=== PATIENT | female | born 1980 | race Caucasian/White ===

== ENCOUNTER 2018-04-03 18:15 | Outpatient (REF) | payer BC, SELFPAY ==
[2018-04-03 19:26] LABS: *AMPHETAMINES SCREEN URINE Negative (Negative); *BARBITURATES SCREEN URINE Negative (Negative); *BENZODIAZEPINES SCREEN URINE Negative (Negative); Cannabinoids THC Negative (Negative); Cocaine Screen,Urine Negative (Negative); METHADONE URINE SCREEN Negative (Negative); OPIATES URINE SCREEN Negative (Negative); Tricyclic Antidepressants Negative (Negative)
[2018-04-06 15:02] LABS: Chlamydia Result Negative; GC Result Negative
== END 2018-04-03 18:35 ==
LOC: LBN 18:15
PROVIDERS: PCP Family Medicine; Visit Provider Advanced Practice Midwife
DX: Z34.91 Encounter for supervision of normal pregnancy, unspecified, first trimester (principal); Z11.3 Encounter for screening for infections with a predominantly sexual mode of transmission
CPT/HCPCS: 80307; 87491; 87591

== ENCOUNTER 2018-04-27 11:50 | Outpatient (CLI) | payer BC, SELFPAY ==
[2018-04-27 12:26] LABS: Glucose,1 Hr (Glucola) 85 mg/dL (80-140)
[2018-04-27 12:43] LABS: Kit/Specimen SENT
[2018-04-27 13:08] LABS: Abs Immature Grans 0.02 k/cumm (0.0-0.09); Absolute Basophil Count 0.02 k/cumm (0.0-0.2); Absolute Eosinophil Count 0.08 k/cumm (0.0-0.7); Absolute Lymphocyte Count 2.14 k/cumm (1.2-3.4); Absolute Monocyte Count 0.73 k/cumm (0.11-0.7); Absolute Neutrophil Count 8.04 k/cumm (1.2-6.7); Basophils % 0.2; Eosinophils % 0.7; HCT 38.3 % (36.0-46.0); HGB 12.9 g/dL (12.0-15.5); Immature Grans % 0.2; Lymphocytes % 19.4; Mean Corp. HGB Concentration 33.7 g/dL (32.0-36.0); Mean Corpuscular Hemoglobin 28.7 pg (27.0-33.0); Mean Corpuscular Volume 85.1 fL (80-95); Mean Platelet Volume 10.2 fL (8.0-11.0); Monocytes % 6.6; Neutrophils % 72.9; Platelet Count 284 x1000/uL (130-400); White Blood Cell Count 11.03 k/cumm (4.4-10.8)
[2018-04-27 13:55] LABS: TSH (W/Ref FT4) 1.16 uIU/mL (0.358-3.74)
[2018-04-28 09:52] LABS: Hepatitis B Surface Ag Negative (NEGAT)
[2018-04-28 10:29] LABS: Hepatitis C Ab w Rflx HCV PCR Negative (NEGAT); Rubella IgG Ab (UVM) Negative; Syphilis Serology (RPR) Negative (Negative); Varicella IgG Antibody Positive
[2018-04-28 10:43] LABS: HIV-1/2 Ag & Ab Screen Negative (NEGAT)
== END 2018-04-27 12:10 ==
PROVIDERS: PCP Family Medicine; Visit Provider Advanced Practice Midwife
DX: Z34.91 Encounter for supervision of normal pregnancy, unspecified, first trimester (principal); O09.511 Supervision of elderly primigravida, first trimester; Z11.59 Encounter for screening for other viral diseases; Z11.4 Encounter for screening for human immunodeficiency virus [HIV]; Z01.84 Encounter for antibody response examination
CPT/HCPCS: 36415; 80055; 82950; 86787; 86803; 86850; 86900; 86901; 87340; 87389; 84443; 86592; 86762

== ENCOUNTER 2018-05-04 08:48 | Outpatient (CLI) | payer BC, SELFPAY | END 2018-05-04 09:08 | PROVIDERS: PCP Family Medicine; Visit Provider Advanced Practice Midwife | DX: Z34.91 Encounter for supervision of normal pregnancy, unspecified, first trimester (principal); Z36.89 Encounter for other specified antenatal screening | CPT/HCPCS: 36415; 81329 ==

== ENCOUNTER 2018-05-27 09:49 | Outpatient (CLI) | payer BC, SELFPAY ==
[2018-06-01 11:39] LABS: AFP 27.3 ng/mL; Cigarette smoking status non-smoker; GA used in risk estimate Dates estimate; IVF Pregnancy No; Initial or repeat testing Initial testing; Insulin dependent diabetes No; Maternal Weight 262 lbs; Number of Fetuses 1; Physician Phone Number 802-748-7300; Prev Pregnancy w/NTD No; RECOMMENDED FOLLOW UP None.; Results Summary Normal risk
== END 2018-05-27 10:09 ==
PROVIDERS: PCP Family Medicine; Visit Provider Advanced Practice Midwife
DX: Z34.91 Encounter for supervision of normal pregnancy, unspecified, first trimester (principal); Z36.89 Encounter for other specified antenatal screening
CPT/HCPCS: 82105

== ENCOUNTER 2018-06-03 10:45 | Outpatient (CLI) | payer BC, SELFPAY ==
--- NOTE | 2018-06-03 11:39 | DI.US_ITS ---
SYMPTOMS/DIAGNOSIS: SURVEY, ROUTINE CARE, Z34.90 OBSTETRICAL ULTRASOUND: Many abnormalities cannot be diagnosed. A normal exam does not exclude a congenital anomaly. Radiology No. [id number] LMP: Exam Date: 06/03/18 [facility] wks days on EDC ([facility]) 11/02/18 Confirmed: HISTORY: PREDICTED GESTATIONAL AGE NUMBER 18+2 weeks with a range of 17+2 weeks to 19+2 weeks. 1 Determined by___1STUS___LMP___HISTORY__X__ EDC PLACENTA PRESENTATION Grade 0-I Cephalic_X__ Anterior_X__Posterior___ Breech____ Right Left Transverse(head right___ Fundal___Low-lying___Previa___ Transverse(head left___ Varying BIOMETRY AMNIOTIC FLUID BPD: 44 mm 19+2 weeks Normal HC: 164 mm 19+1 weeks AC: 139 mm 19+2 weeks FL: 31 mm 19+3 weeks AMNIOTIC FLUID INDEX >26 WK CRL: mm weeks Cisterna Magna: 5 mm CI: 0.82 RUQ: LUQ Cerebellum: 1.9 cm EFW: 287 grams Percentile RLQ: LLQ Total: cms Composite AGE= 19+2 wks EDC by US: 10/26/18 BIOPHYSICAL PROFILE ANATOMY IDENTIFIED SCORE 0/2 Heart: 4-Chamber_X__Rate:BPM 135 LVOT:____X RVOT:___X Amniotic Fluid(>2cms)____ Stomach:__X Kidneys:___X____ Respirations (>30 secs) Bladder:___X Post. Fossa: X Body Flex/Extension 3-vessel cord:__X____Ventricles:___X Cord insertion:__X___ Lips:__X__ Extremity Flex/Extension Spinal morphology:____X____Nose:__X__ Total Score= Palate:__X NS=not seen COMMENTS: There is a single living intrauterine gestation. Estimated sonographic age is 19 weeks 2 days. No or placental abnormalities are identified. IMPRESSION: Single living intrauterine gestation. Estimated sonographic age is 19 weeks 2 days.
== END 2018-06-03 11:05 ==
PROVIDERS: PCP Family Medicine; Visit Provider Advanced Practice Midwife
DX: Z34.92 Encounter for supervision of normal pregnancy, unspecified, second trimester (principal)
CPT/HCPCS: 76805

== ENCOUNTER 2018-08-12 09:02 | Outpatient (CLI) | payer BC, SELFPAY ==
[2018-08-12 09:31] LABS: HCT 38.3 % (36.0-46.0); Mean Corp. HGB Concentration 33.9 g/dL (32.0-36.0); Mean Corpuscular Hemoglobin 29.2 pg (27.0-33.0); Mean Corpuscular Volume 86.1 fL (80-95); Platelet Count 230 x1000/uL (130-400); RBC 4.45 m/cumm (4.00-5.20); RBC Distribution Width 13.8 % (11.7-14.6); White Blood Cell Count 9.89 k/cumm (4.4-10.8)
[2018-08-12 09:32] LABS: Glucose,1 Hr (Glucola) 84 mg/dL (80-140)
== END 2018-08-12 09:22 ==
PROVIDERS: PCP Family Medicine; Visit Provider Advanced Practice Midwife
DX: Z34.93 Encounter for supervision of normal pregnancy, unspecified, third trimester (principal)
CPT/HCPCS: 36415; 82950; 85027

== ENCOUNTER 2018-10-08 10:28 | Outpatient (REF) | payer BC, SELFPAY | END 2018-10-08 10:48 | LOC: LBN 10:28 | PROVIDERS: PCP Family Medicine; Visit Provider Advanced Practice Midwife | DX: Z34.93 Encounter for supervision of normal pregnancy, unspecified, third trimester (principal); Z36.85 Encounter for antenatal screening for Streptococcus B | CPT/HCPCS: 87081 ==

== ENCOUNTER 2018-11-04 20:25 | Inpatient (IN) | payer BC, SELFPAY ==
[2018-11-04 21:19] LABS: HCT 42.5 % (36.0-46.0); HGB 14.7 g/dL (12.0-15.5); Mean Corp. HGB Concentration 34.6 g/dL (32.0-36.0); Mean Corpuscular Hemoglobin 29.3 pg (27.0-33.0); Mean Corpuscular Volume 84.8 fL (80-95); Mean Platelet Volume 10.8 fL (8.0-11.0); Platelet Count 238 x1000/uL (130-400); RBC 5.01 m/cumm (4.00-5.20); RBC Distribution Width 14.4 % (11.7-14.6); White Blood Cell Count 13.63 k/cumm (4.4-10.8)
[2018-11-05 07:00] LABS: HCT 39.1 % (36.0-46.0); HGB 13.3 g/dL (12.0-15.5); Mean Corpuscular Hemoglobin 29.2 pg (27.0-33.0); Mean Corpuscular Volume 85.7 fL (80-95); Mean Platelet Volume 10.7 fL (8.0-11.0); Platelet Count 189 x1000/uL (130-400); RBC 4.56 m/cumm (4.00-5.20); RBC Distribution Width 14.4 % (11.7-14.6); White Blood Cell Count 15.17 k/cumm (4.4-10.8)
== END 2018-11-06 11:30 | disposition home or self-care (01) | DRG 807 ==
PROVIDERS: Admitting Provider Advanced Practice Midwife; PCP Family Medicine; Visit Provider Advanced Practice Midwife
DX: O69.81X0 Labor and delivery complicated by cord around neck, without compression, not applicable or unspecified (principal); Z37.0 Single live birth; Z3A.40 40 weeks gestation of pregnancy; O70.0 First degree perineal laceration during delivery; O77.0 Labor and delivery complicated by meconium in amniotic fluid
CPT/HCPCS: 36415; 85027; 86850; 86900; 86901; J2590

== ENCOUNTER 2021-02-07 16:10 | Outpatient (REF) | payer BC, SELFPAY ==
--- NOTE | 2021-02-07 15:20 | PAPFT_PTH ---
PATIENT: Patience Tsang LOC: [facility] U#:[id number] AGE/SX: 40/F ROOM: RE02/07/[address]: Taty Davis MD : [id number] BED: DIS: 02/07/2021 SPEC #: [id number] RECD: 02/07/21 18:02 STATUS: YAN REEdson #: [id number] MANE: 02/07/21 15:[address]: Taty Davis DEPT: [facility] Cytology RECD BY: Radha Martin Tissues: 1 - CX/ENDOCX FOR PAP SMEARS Procedures: PAP THIN PREP/UVM Screening HPV DNA PROBE Comments: [id number]
== END 2021-02-07 16:11 | disposition home or self-care (01) ==
LOC: LBN 16:10
PROVIDERS: PCP Family Medicine; Visit Provider Family Medicine
DX: Z11.51 Encounter for screening for human papillomavirus (HPV) (principal); Z12.4 Encounter for screening for malignant neoplasm of cervix
CPT/HCPCS: 88142; 87624

== ENCOUNTER 2021-06-18 12:32 | Outpatient (CLI) | payer BC, SELFPAY ==
--- NOTE | 2021-06-18 12:00 | DI.RAD_ITS ---
Exam(s) XR FOOT LT COMPLETE EXAM: XR FOOT LT COMPLETE CLINICAL HISTORY: Injury with swelliing to left lateral foot. S91.461P. TECHNIQUE: 2D digital imaging was performed. COMPARISON: No exams were available for comparison FINDINGS: There is no evidence of fracture or diastasis of the Lisfranc joint. Bone density is normal. No oss eous lesions nor erosions. No radiopaque foreign body. No degenerative changes. IMPRESSION: No significant radiographic findings in the left foot. DATA REPOSITORY: RADIATION DOSE DELIVERED:
== END 2021-06-18 12:52 ==
PROVIDERS: PCP Family Medicine; Visit Provider Nurse Practitioner Family
DX: M79.672 Pain in left foot (principal); M79.89 Other specified soft tissue disorders; M25.572 Pain in left ankle and joints of left foot
CPT/HCPCS: 73630

== ENCOUNTER 2021-09-21 07:36 | Outpatient (CLI) | payer BC, SELFPAY ==
[2021-09-21 20:36] LABS: COVID-19 RT-PCR UVMMC Result Negative (Negative)
== END 2021-09-21 07:37 | disposition home or self-care (01) ==
LOC: LBO 07:37 → LBN 09:16
PROVIDERS: PCP Family Medicine; Visit Provider Obstetrics & Gynecology
DX: Z20.822 Contact with and (suspected) exposure to COVID-19 (principal)
CPT/HCPCS: U0003

== ENCOUNTER 2022-12-13 10:27 | Outpatient (CLI) | payer OTHER, SELFPAY ==
[2022-12-13 12:25] LABS: Abs Immature Grans 0.04 10^3/uL (0.0-0.06); Absolute Basophil Count 0.04 10^3/uL (0.0-0.2); Absolute Lymphocyte Count 2.78 10^3/uL (1.2-3.4); Absolute Monocyte Count 0.54 10^3/uL (0.1-0.8); Absolute Neutrophil Count 5.73 10^3/uL (1.2-6.7); Basophils % 0.4; Eosinophils % 1.1; HCT 40.3 % (36.0-46.0); HGB 13.2 g/dL (11.2-15.7); Immature Grans % 0.4; Lymphocytes % 30.1; MCHC 32.8 % (32.0-36.0); MCV 86 fL (80-95); MPV 9.6 fL (8.0-11.0); Monocytes % 5.9; Neutrophils % 62.1; Platelet Count 331 10^3/uL (130-400); RBC 4.71 10^6/uL (3.93-5.22); RDW-SD 40.8 fL; WBC 9.23 10^3/uL (4.4-10.8)
[2022-12-13 12:55] LABS: ALT 23 U/L (14-59); AST 18 U/L (15-37); Albumin 3.9 g/dL (3.4-5.0); Alkaline Phosphatase 53 U/L (46-116); Anion Gap 11.2 mmol/L (3-11); BUN 12 mg/dL (7-18); Bilirubin, Total 0.8 mg/dL (0.2-1.0); CO2 25.8 mmol/L (21.0-32.0); CREATININE 0.9 mg/dL (0.55-1.02); Calcium 9.2 mg/dL (8.5-10.1); Calculated LDL 130 mg/dL (<100); Chloride 102 mmol/L (98-107); Cholesterol 205 mg/dL (<200); Estimated GFR 82.37 (mL/min/1.73m2); Glucose 94 mg/dL (74-106); HDL Cholesterol 49 mg/dL (40-60); Potassium 4.2 mmol/L (3.5-5.1); Sodium 139 mmol/L (136-145); TSH (W/Ref FT4) 2.39 uIU/mL (0.36-3.74); Total Protein 7.7 g/dL (6.4-8.2); Triglyceride 132 mg/dL (<150)
[2022-12-13 12:58] LABS: Hemoglobin A1C 5.3 % (<5.7)
== END 2022-12-13 10:28 | disposition home or self-care (01) ==
LOC: LOS 10:27
PROVIDERS: PCP Nurse Practitioner Family; Referring Provider Nurse Practitioner Family; Visit Provider Nurse Practitioner Family
DX: Z00.00 Encounter for general adult medical examination without abnormal findings (principal); N93.8 Other specified abnormal uterine and vaginal bleeding; E66.8 Other obesity; Z13.1 Encounter for screening for diabetes mellitus; Z13.29 Encounter for screening for other suspected endocrine disorder; F90.9 Attention-deficit hyperactivity disorder, unspecified type
CPT/HCPCS: 36415; 80053; 80061; 83036; 84443; 85025

== ENCOUNTER → 2023-04-24 00:52 | Outpatient (CLI) | payer OTHER, SELFPAY ==
--- NOTE | 2023-04-24 12:20 | DI.MAMMO_ITS ---
Exam(s) MAMMO SCREENING EXAM: MAMMO SCREENING CLINICAL HISTORY: screening,z12.39. TECHNIQUE: Bilateral full field digital CC and MLO mammographic images were obtained with 3D tomosyn thesis and utilizing computer aided detection (CAD). COMPARISON: None FINDINGS: No CAD designations. Benign-appearing lymph node posteriorly in the right breast noted. There are no new spiculated masses nor malignant appearing microcalcification groups. There is no significant architectural distortion nor skin thickening-retraction. IMPRESSION: No radiographic evidence of malignancy. BI-RADS Category 1 - Negative Breast Density - Category B - Scattered areas of fibroglandular density Breast density Category C or D implies that the patient has dense breast tissue. Dense breast tissue can make it harder to find cancer on a mammogram. Dense breast tissue is also associated with an incr eased risk of breast cancer. This information about the result of the mammogram report was provided to the patient to raise their awareness. Use this report when you speak with the patient about their risks for breast cancer, which includes their family history. At that time, you may recommend additional screening tests (Ultrasoun d or MRI) as these tests may add significant information. A negative radiographic report should not delay biopsy if a dominant or clinically suspicious mass is present. Up to ten percent of cancers are not identified on mammography. A negative report may reinforce clinical impression. Adenosis and dense breasts may obscure an underlying neoplasm. False positive reports average 6 to 10%. Patient will receive a letter notifying them of these results.
== END ==
PROVIDERS: PCP Nurse Practitioner Family; Visit Provider Nurse Practitioner Family
DX: Z12.31 Encounter for screening mammogram for malignant neoplasm of breast (principal)
CPT/HCPCS: 77063; 77067

== ENCOUNTER → 2023-11-07 01:16 | Outpatient (CLI) | payer OTHER, SELFPAY ==
--- NOTE | 2023-11-07 06:45 | DI.MRI_ITS ---
Exam(s) MR UPPER JOINT RT WO EXAM: MR UPPER JOINT RT WO CLINICAL HISTORY: Right shoulder pain, worse with rotation, ? tear,m25.511 TECHNIQUE: Multiplanar multisequence MRI of the shoulder was performed. COMPARISON: No plain films of the shoulder valuable time this MRI interpretation. FINDINGS: MARROW:There is no evidence of fracture, Hill-Sachs deformity, bony Bankart lesion, nor ominous osseo us lesions. GLENOHUMERAL JOINT: No prominent joint effusion although there is some fluid in the sub coracoid rece ss. There are no obvious loose intra-articular bodies. No dominant chondral defects. No osteophyte s. No degenerative subarticular cysts. \ ROTATOR CUFF MECHANISM: AC JOINT/ACROMIUM: There are some degenerative changes in the acromioclavicular joint. There is intr aosseous edema on the clavicular side of this joint. Mild impingement evident at this level. There is no evidence of os acromiale. Supraspinatus: Mild tendinitis signal. No high-grade tear although there does appear to be small nolvia unt of fluid in the subacromial bursa.. There is no muscle atrophy. Infraspinatus: Intact. No evidence of tear nor muscle atrophy. Teres Minor: Intact. No evidence of tear nor muscle atrophy. Subscapularis/anterior cuff: Intact. No abnormal signal at the level of the multipennate insertional fibers. No significant tear nor atrophy. BICEPS TENDON: Exhibits normal position within the intertubercular groove. No evidence of obvious te ar. Mild increased fluid in the tendon sheath. LABRUM: There is no abnormal signal in the superior labrum posterior to the biceps tendon insertion s ite. The posterior labrum exhibits some abnormal intrasubstance signal consistent with some tearing. The anterior labrum appears intact. Inferior labrum appears intact. Inferior glenohumeral ligamen t is intact. QUADRILATERAL SPACE: No evidence of mass in the region of the axillary nerve and dorsal circumflex hu meral vessels. Visualized triceps muscle at this level appears unremarkable. IMPRESSION: 1. There is some mild tendinitis signal in the supraspinatus-rotator cuff tendon consistent with blackfeet ent of tendinitis. There does not appear to be an obvious full-thickness tear but there is mild flui d in the overlying subacromial bursa indicating element of bursitis. There are degenerative changes in the AC joint with some impingement at this level noted. 2. Infraspinatus, teres minor, and anterior cuff-subscapularis appear unremarkable. 3. No obvious tear nor displacement of the long head biceps tendon. 4. Some signal abnormality is noted in the posterior labrum consistent with probable tearing. No ot her labral tears identified and no evidence of paralabral cyst. 5. There are no obvious degenerative changes in the glenohumeral joint. No prominent joint effusion and there are no loose intra-articular bodies. DATA REPOSITORY:
== END ==
PROVIDERS: PCP Nurse Practitioner Family; Visit Provider Nurse Practitioner Family
DX: M25.511 Pain in right shoulder (principal); M75.102 Unspecified rotator cuff tear or rupture of left shoulder, not specified as traumatic
CPT/HCPCS: 73221

== ENCOUNTER 2023-11-18 14:14 | Outpatient (CLI) | payer OTHER, SELFPAY ==
--- NOTE | 2023-11-18 08:15 | DI.RAD_ITS ---
Exam(s) XR SHOULDER RT COMPLETE 2+V EXAM: XR SHOULDER RT COMPLETE 2+V CLINICAL HISTORY: RIGHT SHOULDER PAIN. TECHNIQUE: 2D digital imaging was performed. Two views COMPARISON: No exams were available for comparison FINDINGS: BONES: No acute fracture is present. No bony destructive lesion is seen. Spurring at tip of acromion . JOINTS: No dislocation present. AC joint unremarkable. No degenerative changes at the glenohumeral joint. SOFT TISSUE: Normal. IMPRESSION: Unremarkable radiographs of the right shoulder. DATA REPOSITORY: RADIATION DOSE DELIVERED:
== END 2023-11-18 14:15 | disposition home or self-care (01) ==
LOC: DIORS 14:14
PROVIDERS: PCP Nurse Practitioner Family; Visit Provider Student in an Organized Health Care Education/Training Program
DX: M25.511 Pain in right shoulder (principal); M89.511 Osteolysis, right shoulder
CPT/HCPCS: 73030

== ENCOUNTER 2024-01-21 12:44 | Outpatient (CLI) | payer OTHER, SELFPAY ==
--- NOTE | 2024-01-21 08:00 | DI.RAD_ITS ---
Exam(s) XR SHOULDER RT 1V EXAM: XR SHOULDER RT 1V CLINICAL HISTORY: RIGHT SHOULDER PAIN. TECHNIQUE: 2D digital imaging was performed. COMPARISON: CR XR SHOULDER RT COMPLETE 2+V from 11/18/2023 FINDINGS: Single-view No evidence of fracture or dislocation no abnormal soft tissue calcifications. Subacromial space is not diminished. No obvious degenerative changes in the glenohumeral and AC joints. Bone density nor mal. No osseous lesions. Ipsilateral clavicle appears unremarkable. IMPRESSION: No significant radiograph findings on this single AP view of the shoulder. DATA REPOSITORY: RADIATION DOSE DELIVERED:
== END 2024-01-21 12:45 | disposition home or self-care (01) ==
LOC: DIORS 12:44
PROVIDERS: PCP Nurse Practitioner Family; Visit Provider Student in an Organized Health Care Education/Training Program
DX: M89.511 Osteolysis, right shoulder (principal)
CPT/HCPCS: 73020

== ENCOUNTER 2024-03-25 10:30 | Outpatient (CLI) | payer OTHER, SELFPAY ==
[2024-03-25 11:02] LABS: ALT 19 U/L (14-59); AST 13 U/L (15-37); Albumin 3.8 g/dL (3.4-5.0); Alkaline Phosphatase 46 U/L (46-116); Anion Gap 6.8 mmol/L (3-11); BUN 14 mg/dL (7-18); Bilirubin, Total 0.67 mg/dL (0.2-1.0); CO2 28.2 mmol/L (21.0-32.0); CREATININE 0.9 mg/dL (0.55-1.02); Calcium 9.1 mg/dL (8.5-10.1); Calculated LDL 104 mg/dL (<100); Chloride 106 mmol/L (98-107); Cholesterol 180 mg/dL (<200); Estimated GFR 81.86 (mL/min/1.73m2); Glucose 89 mg/dL (74-106); HDL Cholesterol 49 mg/dL (40-60); Potassium 4.1 mmol/L (3.5-5.1); Sodium 141 mmol/L (136-145); Total Protein 7.4 g/dL (6.4-8.2); Triglyceride 137 mg/dL (<150)
== END 2024-03-25 10:31 | disposition home or self-care (01) ==
LOC: LBO 10:30
PROVIDERS: PCP Nurse Practitioner Family; Visit Provider Nurse Practitioner Family
DX: Z00.00 Encounter for general adult medical examination without abnormal findings (principal); E78.5 Hyperlipidemia, unspecified
CPT/HCPCS: 36415; 80053; 80061

== ENCOUNTER 2024-06-23 15:39 | Outpatient (CLI) | payer OTHER, SELFPAY ==
--- NOTE | 2024-06-23 08:00 | DI.RAD_ITS ---
Exam(s) XR SHOULDER RT 1V EXAM: XR SHOULDER RT 1V CLINICAL HISTORY: F/U RIGHT SHOULDER. TECHNIQUE: 2D digital imaging was performed of the right shoulder. One images were obtained. AP vi ews were obtained. COMPARISON: CR XR SHOULDER RT 1V from 01/21/2024 FINDINGS: This is a limited examination. There is normal alignment of the acromioclavicular and glenohumeral j oints on the single image. The bones are normally mineralized. The soft tissues are unremarkable. No lytic or sclerotic lesions are appreciated. The visualized lungs are clear. IMPRESSION: Stable appearance of the right shoulder on this limited single view. DATA REPOSITORY: RADIATION DOSE DELIVERED:
== END 2024-06-23 15:40 | disposition home or self-care (01) ==
LOC: DIORS 15:39
PROVIDERS: PCP Nurse Practitioner Family; Visit Provider Student in an Organized Health Care Education/Training Program
DX: M89.511 Osteolysis, right shoulder (principal)
CPT/HCPCS: 73020

== ENCOUNTER 2024-07-16 00:19 | Outpatient (CLI) | payer OTHER, SELFPAY ==
--- NOTE | 2024-07-16 06:30 | DI.MRI_ITS ---
Exam(s) MR UPPER JOINT RT WO EXAM: MR UPPER JOINT RT WO CLINICAL HISTORY: R SHOULDER PAIN,slap lesion rt shoulder,osteolysis acromial end of clavicle. TECHNIQUE: Multiplanar multisequence MRI was performed. COMPARISON: MR MR UPPER JOINT RT WO from 11/07/2023 CR XR SHOULDER RT 1V from 06/23/2024 FINDINGS: BONES: There is no fracture or contusion pattern. 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 The glenohumeral joint is normal. TENDONS: Supraspinatus: There is mild intermediate signal seen in the supraspinatus tendon at the insertion si te consistent with tendinosis. No evidence of a tear. Infraspinatus: Unremarkable. Subscapularis: Unremarkable. Teres Minor: Unremarkable. Biceps and Vivian: Unremarkable. MUSCLES: Unremarkable. There is no muscular fatty atrophy of the rotator cuff muscles. GLENOID LABRUM: The posterior labrum now has a somewhat rounded appearance compared to the prior exam ination. This may represent degeneration. SOFT TISSUES: Unremarkable. LIGAMENTS: Unremarkable. OTHER: Subacromial and subdeltoid bursae are unremarkable. IMPRESSION: 1. 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 2. Posterior labrum not has a somewhat rounded appearance compared to the prior examination. Differen tial considerations include retear or degeneration. Please correlate with the patient's surgical hist ory. 3. Tendinosis of the supraspinatus DATA REPOSITORY:
== END 2024-07-16 00:39 ==
LOC: DI 00:19
PROVIDERS: PCP Nurse Practitioner Family; Visit Provider Student in an Organized Health Care Education/Training Program
DX: M89.511 Osteolysis, right shoulder (principal); M75.31 Calcific tendinitis of right shoulder
CPT/HCPCS: 73221

== ENCOUNTER 2025-01-13 16:10 | Outpatient (CLI) | payer OTHER, SELFPAY ==
--- NOTE | 2025-01-13 | DI.MAMMO_ITS ---
Exam(s) MAMMO SCREENING EXAM: MAMMO SCREENING CLINICAL HISTORY: SCREENING, Z12.39. TECHNIQUE: Bilateral full field digital CC and MLO mammographic images were obtained with 3D tomosynthesis and utilizing computer aided detection (CAD). COMPARISON: Prior mammograms were reviewed. FINDINGS: There has been no significant change in the appearance and distribution of the fibroglandular tissue. There are no CAD designations. There are no new spiculated masses nor malignant appearing microcalcification groups. There is no significant architectural distortion nor skin thickening-retraction. IMPRESSION: No radiographic evidence of malignancy. BI-RADS Category 1 - Negative Breast Density - Category B - There are scattered areas of fibroglandular density. Breast density Category C or D implies that the patient has dense breast tissue. Dense breast tissue can make it harder to find cancer on a mammogram. Dense breast tissue is also associated with an increased risk of breast cancer. This information about the result of the mammogram report was provided to the patient to raise their awareness. Use this report when you speak with the patient about their risks for breast cancer, which includes their family history. At that time, you may recommend additional screening tests (Ultrasound or MRI) as these tests may add significant information. A negative radiographic report should not delay biopsy if a dominant or clinically suspicious mass is present. Up to ten percent of cancers are not identified on mammography. A negative report may reinforce clinical impression. Adenosis and dense breasts may obscure an underlying neoplasm. False positive reports average 6 to 10%. Patient will receive a letter notifying them of these results.
== END 2025-01-13 16:30 ==
LOC: DI 16:10
PROVIDERS: PCP Nurse Practitioner Family; Visit Provider Nurse Practitioner Family
DX: Z12.31 Encounter for screening mammogram for malignant neoplasm of breast (principal); R92.323 Mammographic fibroglandular density, bilateral breasts
CPT/HCPCS: 77063; 77067

== ENCOUNTER 2025-01-28 09:07 | Outpatient (CLI) | payer OTHER, SELFPAY ==
[2025-01-28 08:28] LABS: Abs Immature Grans 0.01 10^3/uL (0.0-0.06); HCT 36.6 % (36.0-46.0); HGB 12.3 g/dL (11.2-15.7); Immature Grans % 0.2 %; MCH 28.7 pg (27.0-33.0); MCHC 33.6 % (32.0-36.0); MCV 85 fL (80-95); MPV 9.3 fL (8.0-11.0); Platelet Count 291 10^3/uL (130-400); RBC 4.29 10^6/uL (3.93-5.22); RDW 13.0 % (11.7-14.6); RDW-SD 40.0 fL; WBC 5.68 10^3/uL (4.4-10.8)
[2025-01-28 09:35] LABS: ALT 18 U/L (14-59); AST 12 U/L (15-37); Albumin 3.4 g/dL (3.4-5.0); Alkaline Phosphatase 50 U/L (46-116); Anion Gap 7.0 mmol/L (3-11); BUN 13 mg/dL (7-18); Bilirubin, Total 0.4 mg/dL (0.2-1.0); CO2 28.0 mmol/L (21.0-32.0); Calcium 9.2 mg/dL (8.5-10.1); Chloride 105 mmol/L (98-107); Estimated GFR 109.98 (mL/min/1.73m2); Glucose 93 mg/dL (74-106); Potassium 4.4 mmol/L (3.5-5.1); Sodium 140 mmol/L (136-145); Total Protein 6.6 g/dL (6.4-8.2)
== END 2025-01-28 09:08 | disposition home or self-care (01) ==
LOC: LBO 09:07
PROVIDERS: PCP Nurse Practitioner Family; Visit Provider Nurse Practitioner Family
DX: R10.11 Right upper quadrant pain (principal)
CPT/HCPCS: 36415; 80053; 85025

== ENCOUNTER 2025-03-08 13:40 | Outpatient (CLI) | payer OTHER, SELFPAY ==
[2025-03-14 14:23] LABS: HTLV-I/II Ab Screen Negative (Negative)
== END 2025-03-08 13:41 | disposition home or self-care (01) ==
LOC: LBO 13:40
PROVIDERS: PCP Nurse Practitioner Family; Visit Provider Nurse Practitioner Family
DX: Z13.89 Encounter for screening for other disorder
CPT/HCPCS: 36415; 86790